=== PATIENT | female | born 1955 | race Caucasian/White ===

== ENCOUNTER → 2016-07-30 | Outpatient (CLI) | payer BC ==
[~2016-07-30] MED LIST: ATEN50TA PO; CYCL-375 PO; MULT-1243; NAPR220C11; TRAM50TA4 PO
--- NOTE | 2016-07-30 08:40 | DI ---
Indication: ITS.REASON: R94.5 ABNORMAL RESULTS OF LIVER ;B18.2 CHRONIC VIRAL HEPATITIS C PROCEDURE: US LIVER (HEPATIC): Encounter: Subsequent Comparison: Liver ultrasound dated January 19, 2016 Technique: Grayscale and color Doppler sonographic imaging of the right upper quadrant of the abdomen was performed. Findings: Hepatic parenchyma is slightly nodular without evidence for focal mass. The gallbladder is surgically absent. Both the intra and extrahepatic biliary system are of normal caliber with the common duct measuring 4 mm in dimension. Visualized portions of the head and body of the pancreas are unremarkable. The right kidney is present without collecting system dilatation. The right kidney measures 9.4 cm in length. Impression: No liver mass seen by ultrasound. .
== END ==
LOC: IMA 07:28
PROVIDERS: ATTEND Internal Medicine Gastroenterology
DX: B18.2 Chronic viral hepatitis C (principal); R94.5 Abnormal results of liver function studies

== ENCOUNTER → 2016-08-09 | Outpatient (CLI) | payer BC ==
--- NOTE | 2016-08-10 08:54 | DI ---
Indication: ITS.REASON: M25.569 PAIN IN UNSPECIFIED KNEE PROCEDURE: KNEE BILAT 3 VIEWS: Encounter: Initial Comparison: None Findings: Right knee: No acute fracture or dislocation. No significant joint space narrowing or joint effusion. Tiny loose bodies seen in the posterior joint recess. Small patellofemoral compartment osteophytes. Left knee: No acute fracture or dislocation. Tiny lateral and patellofemoral compartment osteophytes without significant joint space narrowing. No joint effusion. Impression: Right knee: Minimal degenerative change. Left knee: Minimal degenerative change. .
== END ==
LOC: IMA 16:32
PROVIDERS: ATTEND Family Medicine
DX: M25.562 Pain in left knee (principal); M25.561 Pain in right knee